=== PATIENT | female | born 1985 ===

== ENCOUNTER 2018-04-26 04:08 | Day surgery (SDC) | payer MEDICAID ==
[2018-04-26 04:08] VITALS: BMI 23.0
--- NOTE | 2018-04-26 04:38 | C.PDOC ---
History Of Present Illness 32 year old female transfer from [place] for threaten and anemia, accepted for admission by Dr. Miroslava Kent. No new complaints since transfer. Time Seen by Provider: 04/26/18 04:38 Chief Complaint (Nursing): Female Genitourinary History Per: Patient History/Exam Limitations: no limitations Onset/Duration Of Symptoms: Hrs Current Symptoms Are (Timing): Still Present Past Medical History Reviewed: Historical Data, Nursing Documentation, Vital Signs Vital Signs: Last Vital Signs Temp 98 F 04/26/18 04:26 Pulse 102 H 04/26/18 04:26 Resp 14 04/26/18 04:26 BP 106/51 L 04/26/18 04:26 Pulse Ox 100 04/26/18 04:26 - Medical History PMH: Seizures Family History: States: Unknown Family Hx - Social History Hx Alcohol Use: Yes Hx Substance Use: No Review Of Systems Except As Marked, All Systems Reviewed And Found Negative. Genitourinary: Positive for: Vaginal Bleeding Physical Exam - Physical Exam Appears: Non-toxic Skin: Normal Color, Warm, Dry Head: Atraumatic, Normacephalic Eye(s): bilateral: Normal Inspection Oral Mucosa: Moist Chest: Symmetrical, No Tenderness Cardiovascular: Rhythm Regular Respiratory: Other (NARD) Gastrointestinal/Abdominal: Soft, No Tenderness Neurological/Psych: Oriented x3, Normal Speech ED Course And Treatment O2 Sat by Pulse Oximetry: 100 Medical Decision Making Medical Decision Making: Discussed with Dr. Danielle Kent who requests preop labs for anesthesia. Disposition Counseled Patient/Family Regarding: Diagnosis - Disposition Disposition: HOSPITALIZED Disposition Time: 04:38 Condition: STABLE - Clinical Impression Clinical Impression: Incomplete - Scribe Statement The provider has reviewed the documentation as recorded by the Scribe Julien Higgins All medical record entries made by the Scribe were at my direction and personally dictated by me. I have reviewed the chart and agree that the record accurately reflects my personal performance of the history, physical exam, medical decision making, and the department course for this patient. I have also personally directed, reviewed, and agree with the discharge instructions and disposition.
[2018-04-26] MEDS ORDERED: Sodium Chloride 0.9% 1,000 ML IV ONE (05:14)
[2018-04-26 05:46] LABS: BASO % 0.3 % (0.0-2.0); EOS % 0.1 % (0.0-4.0); HEMOGLOBIN 9.2 g/dL (11.0-16.0); LYMPH # 2.9 K/uL (1.0-4.3); LYMPH % 26.4 % (20.0-40.0); MEAN CELL VOLUME 87.4 fL (81.0-99.0); MEAN CORPUSCULAR HGB CONC 33.2 g/dL (33.0-37.0); MEAN PLATELET VOLUME 8.9 fL (7.2-11.7); MONO # 0.5 K/uL (0.0-0.8); MONO % 4.3 % (0.0-10.0); NEUT # 7.5 K/uL (1.8-7.0); NEUT % 68.9 % (50.0-75.0); RBC 3.18 Mil/uL (3.80-5.20); RED CELL DISTRIBUTION WIDTH 14.2 % (11.5-14.5)
[2018-04-26 05:59] LABS: ALB/GLOB RATIO 1.1 (1.0-2.1); ALBUMIN 2.7 g/dL (3.5-5.0); ALT/SGPT 16 U/L (9-52); AST/SGOT 17 U/L (14-36); BLOOD UREA NITROGEN 6 mg/dL (7-17); CALCIUM 7.2 mg/dl (8.6-10.4); GFR NON-AFRICAN AMERICAN > 60
[2018-04-26] MEDS ORDERED: Lactated Ringer's 1,000 ML IV SCH (07:30)
--- NOTE | 2018-04-26 07:39 | CP.PCM.HP ---
History of Present Illness - History of Present Illness History of Present Illness: 32 y/o s[ electve medical termination thursday 9 weeks for IUP reprots starttign bleeidng 1 hour after po medciaon adn then started having heavy bleeidng more than 2 pad/ hour x 2 hour with intimtten cramping. pt dnies any fever, chills, nasue, vomitg, cp, sob. [place] [facility] [place] blood transfsion nd was contintuing to bleeidng. OB: ETOPx 2 BASS FISHER: denies PMH: Seizure PSH: DxC x1 FHX: non contibut MEDS: Trielptal NKDA SHA: negaitve x 3 Present on Admission - Present on Admission Any Indicators Present on Admission: No Review of Systems - Review of Systems All systems: reviewed and no additional remarkable complaints except - Constitutional Constitutional: As Per HPI - EENT Eyes: As Per HPI - Breasts Breasts: absent: As Per HPI, Change in Shape, Mass, Pain, Nipple Discharge, Nipple Inversion, Skin Changes, Swelling, Other - Cardiovascular Cardiovascular: As Per HPI - Respiratory Respiratory: absent: As Per HPI, Cough, Dyspnea, Hemoptysis, Dyspnea on Exertion, Wheezing, Snoring, Stridor, Pain on Inspiration, Chest Congestion, Excessive Mucous Production, Change in Mucous Color, Pain with Coughing, Other - Gastrointestinal Gastrointestinal: absent: As Per HPI, Abdominal Pain, Belching, Bloating, Change in Bowel Habits, Change in Stool Character, Coffee Ground Emesis, Constipation, Cramping, Diarrhea, Dyspepsia, Dysphagia, Early Satiety, Excessive Flatus, Fecal Incontinence, Heartburn, Hematemesis, Hematochezia, Loose Stools, Melena, Nausea, Odynophagia, Temesmus, Vomiting, Other - Genitourinary Genitourinary: absent: As Per HPI, Change in Urinary Stream, Difficulty Urinating, Dysuria, Flank Pain, Hematuria, Pyuria, Nocturia, Urinary Incontinence, Urinary Frequency, Urinary Hesitance, Urinary Urgency, Voiding Freq/Small Amts, Freq UTI, Hx Renal/Bladder Calculi, Hx /Renal Surgery, Bladder Distension, Other - Reproductive: Female Reproductive:Female: Amenorrhea Past Patient History - Infectious Disease Hx of Infectious Diseases: None - Past Medical History & Family History Past Medical History?: Yes Past Family History: Reviewed and not pertinent - Past Social History Smoking Status: Never Smoked - CARDIAC Hx Cardiac Disorders: No - PULMONARY Hx Respiratory Disorders: Yes Hx Asthma: No Hx Bronchitis: No Hx Chronic Obstructive Pulmonary Disease (COPD): No Hx Emphysema: No Hx Lung Cancer: No Hx Pneumonia: No Hx Pulmonary Edema: No Hx Pulmonary Embolism: No Hx Respiratory Aspiration: No Hx Respiratory Tract Infection: No Hx Sleep Apnea: No Hx Tuberculosis: No Other/Comment: dry coughing on and off. - NEUROLOGICAL Hx Seizures: Yes Other/Comment: Patient has a history of seizure. Last attack-2018. On trileptal - HEENT Hx HEENT Problems: Yes Hx Blind: No Hx Cataracts: No Hx Deafness: No Hx Difficulty Chewing: No Hx Epistaxis: No Hx Glaucoma: No Hx Macular Degeneration: No Hx Sinusitis: No Other/Comment: with farsighted vision. Wears eyeglasses. - RENAL Hx Chronic Kidney Disease: No - ENDOCRINE/METABOLIC Hx Endocrine Disorders: No - HEMATOLOGICAL/ONCOLOGICAL Hx Blood Disorders: Yes Hx AIDS: No Hx Anemia: Yes Hx Blood Transfusions: Yes Hx Blood Transfusion Reaction: No Hx Bruising: No Hx Cancer: No Hx Chemotherapy: No Hx Cirrhosis: No Hx Gum Bleeding: No Hx Hemophilia: No Hx Hepatitis A: No Hx Hepatitis B: No Hx Hepatitis C: No Hx Human Immunodeficiency Virus (HIV): No Hx Leukemia: No Hx Metastesis: No Hx Shingles: No Hx Sickle Cell Disease: No Hx Unexplained Bleeding: No Hx von Willebrand's Disease: No - INTEGUMENTARY Hx Dermatological Problems: No - MUSCULOSKELETAL/RHEUMATOLOGICAL Hx Musculoskeletal Disorders: No Hx Falls: No - GASTROINTESTINAL Hx Gastrointestinal Disorders: No - GENITOURINARY/GYNECOLOGICAL Hx Genitourinary Disorders: Yes Hx Bladder Cancer: No Hx Bladder Stone: No Hx Cervical Cancer: No Hx Hematuria: No Hx Incontinence: No Hx Ovarian Cancer: No Hx Postmenopausal Bleeding: No Hx Reproductive Disorders: No Hx Sexually Transmitted Disorders: No Hx Uterine Cancer: No Hx Urinary Tract Infection: No Other/Comment: Incomplete - PSYCHIATRIC Hx Psychophysiologic Disorder: No Hx Substance Use: No - SURGICAL HISTORY Hx Surgeries: No Other/Comment: DNC- November - ANESTHESIA Hx Anesthesia: Yes Hx Anesthesia Reactions: No Hx Malignant Hyperthermia: No Has any member of the family had a problem w/ anesthesia?: No Meds Allergies/Adverse Reactions: Allergies Allergy/AdvReac Type Severity Reaction Status Date / Time No Known Allergies Allergy Verified 04/26/18 04:37 Physical Exam - Constitutional Appears: Well, Non-toxic - Head Exam Head Exam: ATRAUMATIC, NORMAL INSPECTION - Respiratory Exam Respiratory Exam: Clear to Auscultation Bilateral, NORMAL BREATHING PATTERN - Cardiovascular Exam Cardiovascular Exam: REGULAR RHYTHM - GI/Abdominal Exam GI & Abdominal Exam: Normal Bowel Sounds, Soft, Tenderness Additional comments: Extnral Genita; blodo on perineam Vagina; Dark red blood, clots Cerix; 1-2, non tender, discharge Utuers; on tender Adne; xnon tender NAnus/perienim: grossl ynoraml Results - Vital Signs Recent Vital Signs: Last Vital Signs Temp 98.3 F 04/26/18 06:21 Pulse 97 H 04/26/18 06:21 Resp 20 04/26/18 06:33 BP 100/63 04/26/18 06:21 Pulse Ox 98 04/26/18 06:33 - Labs Result Diagrams: 04/26/18 05:38 04/26/18 05:38 Labs: Laboratory Results - last 24 hr 04/26/18 04/26/18 04/26/18 05:36 05:38 05:38 WBC 11.0 H RBC 3.18 L Hgb 9.2 L Hct 27.8 L MCV 87.4 MCH 29.0 MCHC 33.2 RDW 14.2 Plt Count 208 MPV 8.9 Neut % (Auto) 68.9 Lymph % (Auto) 26.4 Roosevelt % (Auto) 4.3 Eos % (Auto) 0.1 Baso % (Auto) 0.3 Neut # (Auto) 7.5 H Lymph # (Auto) 2.9 Roosevelt # (Auto) 0.5 Eos # (Auto) 0.0 Baso # (Auto) 0.0 Sodium 134 Potassium 3.7 Chloride 107 Carbon Dioxide 18 L Anion Gap 13 BUN 6 L Creatinine 0.5 L Est GFR ( Amer) > 60 Est GFR (Non-Af Amer) > 60 Random Glucose 99 Calcium 7.2 L Total Bilirubin 0.3 AST 17 ALT 16 Alkaline Phosphatase 48 Total Protein 5.2 L Albumin 2.7 L Globulin 2.5 Albumin/Globulin Ratio 1.1 Blood Type O POSITIVE Antibody Screen Negative Assessment & Plan (1) Incomplete Assessment and Plan: 1. For Suction DxC: consent obtained 2. NPO, IVF 3. IV antibiocs 4. Repat CbC Status: Acute
[2018-04-26] MEDS ORDERED: Doxycycline 100 mg Inj ONE (07:49)
[2018-04-26] MEDS ORDERED: Midazolam 2 MG/2 ML VIAL ONE (07:49)
[2018-04-26] MEDS ORDERED: Oxytocin 10 Units/ml Inj ONE (07:49)
[2018-04-26] MEDS ORDERED: Propofol 10 mg/ml Inj (20 ML) ONE (07:49)
[2018-04-26] MEDS ORDERED: HYDROmorphone 0.5 mg/0.5 ml ISec IVP PRN ×2 (08:00→08:40)
[2018-04-26] MEDS ORDERED: Lactated Ringer's 1,000 ML IV ONE (08:34)
[2018-04-26] MEDS ORDERED: Sodium Chloride 0.9% 500 ML IV ONE (09:30)
--- NOTE | 2018-04-26 11:48 | RAD ---
Chest x-ray single frontal view HISTORY: Preoperative evaluation. Comparison: None available. Findings: No focal infiltrate or effusion. Bibasilar breast and nipple shadows. Heart size within normal limits. Impression: No focal infiltrate or effusion.
[2018-04-26 13:01] VITALS: RESP 18
[2018-04-26 15:39] VITALS: BP 88/56; PULSE 92; TEMP 98.9; O2SAT 97
--- NOTE | 2018-04-26 16:13 | CARD ---
APPROVED REPORT Date of service: 04/26/2018 EKG Measurement Heart [id number] <Conclusion> Normal sinus rhythm Normal ECG
[2018-04-26 17:49] LABS: BASO % 0.3 % (0.0-2.0); EOS # 0.1 K/uL (0.0-0.7); EOS % 1.6 % (0.0-4.0); HEMOGLOBIN 9.5 g/dL (11.0-16.0); LYMPH # 2.8 K/uL (1.0-4.3); LYMPH % 31.1 % (20.0-40.0); MEAN CELL VOLUME 86.5 fL (81.0-99.0); MEAN CORPUSCULAR HEMOGLOBIN 29.2 pg (27.0-31.0); MEAN CORPUSCULAR HGB CONC 33.7 g/dL (33.0-37.0); MEAN PLATELET VOLUME 8.6 fL (7.2-11.7); MONO # 0.5 K/uL (0.0-0.8); MONO % 5.5 % (0.0-10.0); NEUT # 5.5 K/uL (1.8-7.0); NEUT % 61.5 % (50.0-75.0); RBC 3.26 Mil/uL (3.80-5.20); WHITE BLOOD COUNT 8.9 K/uL (4.8-10.8)
--- NOTE | 2018-04-26 18:15 | OP ---
PROCEDURE DATE: 04/26/2018 PREOPERATIVE DIAGNOSIS: Incomplete . POSTOPERATIVE DIAGNOSIS: Incomplete . SURGICAL PROCEDURE: Suction, dilation and curettage. SURGEON: Danielle Kent MD DIRECTOR STUDENT UNION: Leeann Andrews MD OPERATIVE FINDINGS: Nine week size uterus, cervical os dilated 2 to 3 cm, multiple polys noted at cervical os, products of conception 7 mm suction curette obtained. COMPLICATIONS: None. ESTIMATED BLOOD LOSS: 100 mL. BLOOD PRODUCTS: None. INDICATION FOR SURGERY: The patient is a 32-year-old that has had multiple elective terminations that presented today on [facility] complaining of excessive vaginal bleeding after undergoing a medical termination. The patient was evaluated in which she had a drop in her hematocrit from 2 g and was a given a blood transfusion given to increase bleeding. The patient was then transferred after [employer]GER consultation was performed and consulted for a suction D and C. Risks, benefits and alternatives were discussed with the patient. DESCRIPTION OF PROCEDURE: The patient was taken to the operating room where she was given general anesthesia. Once it was found to be adequate, she was placed on the operating table in the dorsal supine position. The patient was prepped and draped in the usual sterile fashion. A time-out confirmed correct patient and correct procedure. Bimanual exam was performed. The patient was given preoperative prophylactic antibiotics. The bladder was then drained with red rubber catheter there. A Dennison retractor was placed in the anterior and posterior fornix of the vagina. A single-tooth tenaculum was placed in the anterior lip of the cervix. The cervix was dilated, the products at the cervix os was removed with ring forceps and sent to pathology. Following this, the 7 mm suction curette was advanced through the fundus. Suction was then activated 360 degrees until all products were removed. A gentle curettage was done. The suction curette was then advanced for an additional time until there was air bubbles were noted, all products removed. There was good hemostasis noted. At the end of the procedure, all needle, sponge, and instrument counts were noted to be correct. The patient tolerated the procedure well and was transferred to the recovery room in stable condition. Danielle Kent MD [facility] # [id number]
== END 2018-04-26 07:15 | disposition home or self-care (01) ==
LOC: C.ER 04:08 → C.SDS 04:08 → UNDOADMIN 04:38 → C.4M 04:38 → UNDODISIN 07:15 → C.SDS 07:15 → EDSTATUS 14:09
PROVIDERS: ATTEND Emergency Medicine
DX: O03.4 Incomplete spontaneous abortion without complication (principal)
CPT/HCPCS: 36430; 59812; 71045; 80053; 85025; 86850; 86900; 86920; 88305; 93005; J2210; J2250; J2590; J2704; J3010; J7030; J7040; J7120; P9051